=== PATIENT | male | born 1985 | race Caucasian/White ===

== ENCOUNTER 2020-10-17 16:42 | Emergency (ER) | payer SELFPAY ==
[2020-10-17 17:00] VITALS: BP 135/77; PULSE 77; TEMP 37; O2SAT 98
--- NOTE | 2020-10-17 18:14 | W.ED.GENAD ---
Discharge Plan Disposition Patient Disposition: HOME Condition: Stable Discharge Details Clinical Impression: Corneal abrasion, right, Foreign body in eye Primary Care Provider: None,None ED Provider: Klarissa Carbone Home Meds and New Rx's Prescriptions: No Action No Known Home Meds RF: 0 Discharge Instructions Instructions: Corneal Abrasion (ED), Eye Foreign Body (ED) Additional Instructions: Apply 1/2 inch ribbon of the erythromycin ointment to the right eye 4 times daily for the 5 to 7 days. Call [facility] on Monday morning for follow-up. Return immediately to the emergency department if you develop any worsening or new concerning symptoms. 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 There is a pinpoint foreign body which may be metal or wood noted at the 6 o'clock position over his right cornea. Tetracaine applied to right eye and foreign body removed with 18-gauge needle. Eye irrigated with balanced salt solution and examined with Diamond lamp and noted corneal abrasion at 6 o'clock position at site of foreign body removal. Slit-lamp exam negative for additional foreign body. We will treat with erythromycin. [facility] on [facility] follow-up care list. Usual and customary return precautions given prior to discharge. Medical Records Medical records reviewed: Yes I reviewed the patient's medical records. HPI General Mode of arrival: ambulatory. Date/Time Provider Initiated Documentation: 10/17/20 17:04. Limitations to Documentation: no limitations. Information obtained by: patient. 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 He states he is unsure if he got wood or metal in his right eye. Tetanus is up-to-date within the past 5 years. Denies blurry vision. Denies headache or dizziness. He does not wear contacts or glasses. Related Data Home Medications Medication Instructions Recorded Confirmed Unknown [No Known Home Meds] 08/04/16 10/17/20 Allergies Allergy/AdvReac Type Severity Reaction Status Date / Time Penicillins Allergy Unknown unknown Unverified 10/17/20 17:03 General Stated Complaint: EyeProblem ARIES: 4 Review of Systems All systems reviewed & are unremarkable except as noted in HPI and below Constitutional Constitutional: Reports as per HPI, Denies chills and Denies fever(s) Eyes Eyes: Denies blurry vision and Reports irritation Comments: foreign body R eye ENT Ears, Nose, Mouth, and Throat: Denies dizziness, Denies sore throat and Denies throat swelling Cardiovascular Cardiovascular: Denies chest pain and Denies dyspnea Respiratory Respiratory: Denies cough and Denies dyspnea Gastrointestinal Gastrointestinal: Denies abdominal pain, Denies diarrhea and Denies vomiting Genitourinary Genitourinary: Denies hematuria and Denies dysuria Musculoskeletal Musculoskeletal: Denies back pain and Denies numbness Integumentary/Breasts Skin/Breast: Denies lesions and Denies rash Neurologic Neurologic: Denies dizziness, Denies localized weakness and Denies numbness Allergic/Immunologic Allergic/Immunologic: Denies throat swelling [facility] Medical History (Updated 10/17/20 @ 18:20 by Klarissa Carbone DO) No significant past medical history Surgical History (Updated 10/17/20 @ 18:15 by Klarissa Carbone DO) No significant past surgical history Social History Smoking/Tobacco Use Status: Never Smoking risk assessment performed?: Yes Alcohol Intake: never Drug use: Never Substance use type: does not use Do you feel safe at home: Yes Do you feel safe in your relationship?: Yes Exam Const General: cooperative, healthy appearing and no acute distress HENMT Head: normal to inspection Mouth: oral mucosae normal Eyes General: appearance normal, both eyes and all related structures Eyelids: eyelids normal Conjunctivae: conjunctivae normal Sclera: sclerae normal Cornea: corneas abnormal on the right foreign body other (pinpoint, round, dark brown, unclear if wood or metal ) and other (no additional foreign body noted with eyelid eversion) Pupils: PERRL EOM: EOM intact bilaterally Neck Neck: normal visual inspection Resp Effort & Inspection: normal respiratory effort and able to speak in complete sentences Cardio Rate: regular rate Skin General skin exam: no rashes or lesions noted Neuro General: patient alert, patient awake and patient oriented x3 Motor: muscle tone normal throughout Extrem General: normal to inspection and full ROM Psych Appearance: grossly normal Affect: normal affect Course Vital Signs Vital signs: Vital Signs Temperature 98.6 F 10/17/20 17:00 Pulse 77 10/17/20 17:00 Blood Pressure 135/77 10/17/20 17:00 Pulse Oximetry 98 10/17/20 17:00 Temperature 98.6 F 10/17/20 17:00 Temperature Source Temporal Artery Scan 10/17/20 17:00 Pulse 77 10/17/20 17:00 Respiratory Effort Non-Labored 10/17/20 17:02 Blood Pressure 135/77 10/17/20 17:00 Blood Pressure Position Sitting 10/17/20 17:00 Pulse Oximetry 98 10/17/20 17:00 Oxygen Delivery Method Room Air 10/17/20 17:00 Oxygen Flow Rate 0 10/17/20 17:00 Pain Level 2 10/17/20 17:00
--- NOTE | 2020-10-17 18:19 | NUR.NOTE ---
referral sent to [facility]
[2020-10-17] MEDS: Balanced Salt Solution 15 ML BTL (18:49)
[2020-10-17] MEDS: Erythromycin Ophth Oint 3.5 GM TUBE OU (18:50)
[2020-10-17] MEDS: Fluorescein STRIPS 100/BOX 1 MG (18:50)
[2020-10-17] MEDS: Tetracaine 0.5% 4 ML BTL (18:50)
== END 2020-10-17 18:28 | disposition home or self-care (01) ==
PROVIDERS: Emergency Provider Physician Assistant
DX: S05.01XA Injury of conjunctiva and corneal abrasion without foreign body, right eye, initial encounter (principal); X58.XXXA Exposure to other specified factors, initial encounter; Y99.0 Civilian activity done for income or pay
CPT/HCPCS: 65222